=== PATIENT | female | born 1965 | race Caucasian/White ===

== ENCOUNTER 2017-04-24 09:39 | Emergency (ER) | payer BC ==
[~2017-04-24] VITALS: Ht 170.2 cm; Wt 70.2 kg
[2017-04-24 09:52] VITALS: TEMP 36.7; Ht 170.2 cm; Wt 70.2 kg
[2017-04-24] MEDS ORDERED: ONDANSETRON INJ 2 MG/ML 2 ML VIAL IV STA (09:59)
[2017-04-24] MEDS ORDERED: SODIUM CHLORIDE 0.9% 1000ML 1,000 ML IV STA (09:59)
[2017-04-24] MEDS ORDERED: KETOROLAC TROMETHAMINE 30 MG/ML VIAL IV STA (09:59)
[2017-04-24] MEDS ORDERED: SUMATRIPTAN SUCCINATE 6 MG/0.5 ML VIAL SQ STA (09:59)
[2017-04-24 10:08] LABS: BASO % 0.4 %; BASO ABS # 0.02 K/uL (0-0.2); COMPLETE YES; EOS % 1.1 %; HEMATOCRIT 42.6 % (37-47); LYMPH % 26.8 %; LYMPH ABS # 1.41 K/uL (1.2-3.4); MEAN CELL VOLUME 87.3 fL (80-100); MEAN CORPUSCULAR HEMOGLOBIN 30.1 pg (25-34); MEAN CORPUSCULAR HGB CONC 34.5 g/dl (32-36); MEAN PLATELET VOLUME 10.3 fL (7.4-10.4); MONO % 6.1 %; NEUT % 65.6 %; PLATELET COUNT 280 K/uL (130-400); RED BLOOD COUNT 4.88 M/uL (4.2-5.4); WHITE BLOOD COUNT 5.26 K/uL (4.8-10.8)
[2017-04-24 10:16] LABS: ALT/SGPT 20 U/L (12-78); BLOOD UREA NITROGEN 14 mg/dl (7-18); BUN/CREATININE RATIO 17.4 (10-20); CALCIUM 9.5 mg/dl (8.5-10.1); CARBON DIOXIDE 29 mmol/L (21-32); CHLORIDE 102 mmol/L (98-107); CREATININE 0.78 mg/dl (0.60-1.20); GLUCOSE 97 mg/dl (70-99); MAGNESIUM 2.3 mg/dl (1.8-2.4); POTASSIUM 4.2 mmol/L (3.5-5.1); SODIUM 136 mmol/L (136-145)
[2017-04-24 10:19] LABS: INR 0.9 (0.9-1.1); PARTIAL THROMBOPLASTIN RATIO 0.9; PROTHROMBIN TIME (PATIENT) 10.1 SECONDS (9.0-12.0)
[2017-04-24 10:24] LABS: ALKALINE PHOSPHATASE 63 U/L (45-117); AST/SGOT 12 U/L (15-37)
[2017-04-24] MEDS ORDERED: IBUP-103 PO (10:46)
[2017-04-24] MEDS ORDERED: MULT-897 PO (10:46)
[2017-04-24] MEDS ORDERED: NITR1CAP33 PO (10:46)
--- NOTE | 2017-04-24 10:54 | DIAGNOSTIC IMAGING REPORT ---
HEAD CT NONCONTRAST CT DOSE: 638.56 mGycm HISTORY: Headache GRIFFIN TECHNIQUE: Multiaxial CT images of the head were performed without the use of intravenous contrast. Comparison: None. Findings: The paranasal sinuses and mastoid air cells are clear. The calvarium and skull base are intact. The ventricles and sulci are within normal limits. There is no mass, hematoma, midline shift, or acute infarct. Impression: No acute intracranial abnormality. Electronically signed by: Greg Kenney M.D. 04/24/2017 10:52 AM Dictated Date/Time: 04/24/2017 10:51 AM
--- NOTE | 2017-04-24 11:29 | DIAGNOSTIC IMAGING REPORT ---
SINGLE VIEW CHEST CLINICAL HISTORY: Generalized abdominal pain. FINDINGS: An AP, portable, upright chest radiograph is obtained. No prior studies are available for comparison at the time of dictation. The examination is degraded by portable technique and patient rotation. The cardiomediastinal silhouette is unremarkable. The lungs and pleural spaces are clear. No pneumothorax is seen. The bony thorax is grossly intact. IMPRESSION: No active disease in the chest. Electronically signed by: Harjeet Cueto M.D. 04/24/2017 11:28 AM Dictated Date/Time: 04/24/2017 11:27 AM
[2017-04-24 12:42] VITALS: BP 107/73; PULSE 73; O2SAT 99
--- NOTE | 2017-04-24 14:12 | EMERGENCY ROOM VISIT NOTE ---
History Report prepared by Ashish: Tawanna Madrid Under the Supervision of: Dr. Mio Gann D.O. First contact with patient: 09:53 Chief Complaint: OTHER COMPLAINT Stated Complaint: SYNCOPE History of Present Illness The patient is a 51 year old female who presents to the Emergency Room with complaints of an episode of near syncope occurring prior to arrival. The patient reports that she was driving home to [place] when she became extremely nauseous. She reports that she proceeded to vomit twice. The patient notes that she became pale, diaphoretic, and got a "gurgle" feeling in her chest/ throat. She reports that she felt like her heart rate was racing. The patient notes that she is currently starting one of her migraines. She notes that the pain starts in her neck and radiates down her jaw line. The patient denies chest pain , shortness of breath, swelling in legs, and pain in legs. She notes that she just had a visit with her PCP three days ago and was fine. The patient reports that it seems that the feeling of nausea is intermittent. Source of History: patient Onset: prior to arrival Position: other (global) Quality: other (global) Timing: other (episode) Associated Symptoms: + headache, + diaphoresis, + neck pain, + nausea, + vomiting, No chest pain, No SOB Note: The patient complains of being pale, a fast heart beat, and having a "gurgle" in her chest/throat. The patient denies swelling or pain in her legs. Review of Systems See HPI for pertinent positives & negatives. A total of 10 systems reviewed and were otherwise negative. Past Medical & Surgical Surgical Problems: (1) History of hysterectomy Family History No pertinent family history Social History Smoking Status: Never Smoker Smokeless Tobacco Use: No Alcohol Use: none Drug Use: none Marital Status: single Housing Status: lives alone Occupation Status: employed Current/Historical Medications Scheduled Ibuprofen Tab (Advil), 400-600 MG PO Q6H Multiple Vitamin (One Daily), 1 TAB PO DAILY Nitrofurantoin Macrocrystals (Macrodantin), 50 MG PO 3XWK Allergies Coded Allergies: Cephalexin (Unverified Allergy, Unknown, hives, 04/24/17) Physical Exam Vital Signs Date Time Temp Pulse Resp B/P (MAP) Pulse Ox O2 Delivery O2 Flow Rate FiO2 6/29/17 12:42 73 18 105/73 99 04/24/17 12:42 73 18 107/73 99 Room Air 04/24/17 11:38 79 16 98/79 99 Room Air 04/24/17 10:45 76 16 122/76 99 Room Air 04/24/17 09:52 36.7 65 18 112/71 99 Room Air 04/24/17 09:51 72 Physical Exam GENERAL: Patient is awake, alert, and in no acute distress. Patient is resting comfortably and showing no signs of anxiety EYES: The conjunctivae are clear. The pupils are round and reactive. EARS, NOSE, MOUTH AND THROAT: The nose is without any evidence of any deformity. Mucous membranes are moist tongue is midline NECK: The neck is nontender and supple. RESPIRATORY: Normal respiratory effort is noted there is no evidence of wheezing rhonchi or rales CARDIOVASCULAR: Regular rate and rhythm noted there no murmurs rubs or gallops normal S1 normal S2 GASTROINTESTINAL: The abdomen is soft. Bowel sounds are present in all quadrants. Abdomen is nontender MUSCULOSKELETAL/EXTREMITIES: There is no evidence of gross deformity full range of motion is noted in the hips and shoulders SKIN: There is no obvious evidence of any rash. There are no petechiae, pallor or cyanosis noted. NEUROLOGIC: Patient is awake alert and oriented x3 strength is symmetric patellar reflexes are 2+ bilaterally Medical Decision & Procedures ER Provider Diagnostic Interpretation: Radiology results as stated below per my review and radiologist interpretation: HEAD CT NONCONTRAST CT DOSE: 638.56 mGycm HISTORY: Headache GRIFFIN TECHNIQUE: Multiaxial CT images of the head were performed without the use of intravenous contrast. Comparison: None. Findings: The paranasal sinuses and mastoid air cells are clear. The calvarium and skull base are intact. The ventricles and sulci are within normal limits. There is no mass, hematoma, midline shift, or acute infarct. Impression: No acute intracranial abnormality. Electronically signed by: Greg Kenney M.D. 04/24/2017 10:52 AM Dictated Date/Time: 04/24/2017 10:51 AM SINGLE VIEW CHEST CLINICAL HISTORY: Generalized abdominal pain. FINDINGS: An AP, portable, upright chest radiograph is obtained. No prior studies are available for comparison at the time of dictation. The examination is degraded by portable technique and patient rotation. The cardiomediastinal silhouette is unremarkable. The lungs and pleural spaces are clear. No pneumothorax is seen. The bony thorax is grossly intact. IMPRESSION: No active disease in the chest. Electronically signed by: Harjeet Cueto M.D. 04/24/2017 11:28 AM Dictated Date/Time: 04/24/2017 11:27 AM Laboratory Results 04/24/17 09:22 Red Blood Count 4.88, Mean Corpuscular Volume 87.3, Mean Corpuscular Hemoglobin 30.1, Mean Corpuscular Hemoglobin Concent 34.5, Mean Platelet Volume 10.3, Neutrophils (%) (Auto) 65.6, Lymphocytes (%) (Auto) 26.8, Monocytes (%) (Auto) 6.1, Eosinophils (%) (Auto) 1.1, Basophils (%) (Auto) 0.4, Neutrophils # (Auto) 3.45, Lymphocytes # (Auto) 1.41, Monocytes # (Auto) 0.32, Eosinophils # (Auto) 0.06, Basophils # (Auto) 0.02 04/24/17 09:22 Test 04/24/17 09:22 White Blood Count 5.26 K/uL (4.8-10.8) Red Blood Count 4.88 M/uL (4.2-5.4) Hemoglobin 14.7 g/dL (12.0-16.0) Hematocrit 42.6 % (37-47) Mean Corpuscular Volume 87.3 fL (80-100) Mean Corpuscular Hemoglobin 30.1 pg (25-34) Mean Corpuscular Hemoglobin Concent 34.5 g/dl (32-36) Platelet Count 280 K/uL (130-400) Mean Platelet Volume 10.3 fL (7.4-10.4) Neutrophils (%) (Auto) 65.6 % Lymphocytes (%) (Auto) 26.8 % Monocytes (%) (Auto) 6.1 % Eosinophils (%) (Auto) 1.1 % Basophils (%) (Auto) 0.4 % Neutrophils # (Auto) 3.45 K/uL (1.4-6.5) Lymphocytes # (Auto) 1.41 K/uL (1.2-3.4) Monocytes # (Auto) 0.32 K/uL (0.11-0.59) Eosinophils # (Auto) 0.06 K/uL (0-0.5) Basophils # (Auto) 0.02 K/uL (0-0.2) RDW Standard Deviation 42.7 fL (36.4-46.3) RDW Coefficient of Variation 13.3 % (11.5-14.5) Immature Granulocyte % (Auto) 0.0 % Immature Granulocyte # (Auto) 0.00 K/uL (0.00-0.02) Prothrombin Time 10.1 SECONDS (9.0-12.0) Prothromb Time International Ratio 0.9 (0.9-1.1) Activated Partial Thromboplast Time 23.7 SECONDS (21.0-31.0) Partial Thromboplastin Ratio 0.9 Anion Gap 5.0 mmol/L (3-11) Est Creatinine Clear Calc Drug Dose 84.9 ml/min Estimated GFR () 103.5 Estimated GFR (Non- 89.3 BUN/Creatinine Ratio 17.4 (10-20) Calcium Level 9.5 mg/dl (8.5-10.1) Magnesium Level 2.3 mg/dl (1.8-2.4) Total Bilirubin 0.4 mg/dl (0.2-1) Direct Bilirubin < 0.1 mg/dl (0-0.2) Aspartate Amino Transf (AST/SGOT) 12 U/L (15-37) Alanine Aminotransferase (ALT/SGPT) 20 U/L (12-78) Alkaline Phosphatase 63 U/L (45-117) Troponin I < 0.015 ng/ml (0-0.045) Total Protein 7.7 gm/dl (6.4-8.2) Albumin 4.3 gm/dl (3.4-5.0) Lipase 190 U/L (73-393) Thyroid Stimulating Hormone (TSH) 2.160 uIu/ml (0.300-4.500) Free Thyroxine 1.04 ng/dl (0.80-1.60) Laboratory results per my review. Medications Administered Medications (Trade) Dose Ordered Sig/Pollo Route Start Time Stop Time Status Last Admin Dose Admin Ketorolac Tromethamine (Toradol Inj) 30 mg NOW STAT IV 04/24/17 09:59 04/24/17 10:01 DC 04/24/17 10:23 30 MG Sodium Chloride 1,000 ml @ 999 mls/hr Q1H1M STAT IV 04/24/17 09:59 04/24/17 10:59 DC 04/24/17 10:22 999 MLS/HR Ondansetron HCl (Zofran Inj) 4 mg NOW STAT IV 04/24/17 09:59 04/24/17 10:01 DC 04/24/17 10:23 4 MG Sumatriptan Succinate (Imitrex Sq Inj) 6 mg NOW STAT SQ 04/24/17 09:59 04/24/17 10:01 DC 04/24/17 10:24 6 MG ECG Indication: vomiting Rate (beats per minute): 70 Rhythm: normal sinus Findings: no ectopy, other (no acute ST abnormalities) Comparison ECG Date: no prior available ED Course 0953: The patient was evaluated in room C9. A complete history and physical examination were performed. 0959: Ordered Imitrex Sq Inj 6 mg SQ, Zofran Inj 4 mg IV, NSS 1000 ml @ 999 mls/ hr IV, Toradol Inj 30 mg IV. 1224: Upon reevaluation, the patient is resting comfortably. I discussed the results and treatment plan with her. The patient verbalized agreement of the treatment plan. The patient was discharged home. Medical Decision Medication Reconciliation: I attest that I have personally reviewed the patient' s current medications list. Blood pressure screening: Patient was found to have normal blood pressure on screening and does not require follow-up. Differential diagnosis: Etiologies such as premature contractions, electrolyte abnormality, cardiac dysrhythmia, thyroid dysfunction, pulmonary embolism, infection, gastrointestinal, as well as others were entertained. The patient is a 51-year-old female who presented to the emergency department for evaluation of palpitations. The patient was driving when she had an acute onset of palpitations associated with diaphoresis. The patient felt that her heart was racing. She presented to the emergency department with normal sinus rhythm but states that those symptoms have significantly improved and was now starting to have a migraine headache. She states that she doesn't a history of migraine headaches but has not had a formal workup at this time. She had no focal neurologic deficits or meningismus. The patient was treated with IV pain medicine as well as IV fluids in the emergency department. She was reevaluated multiple times. I discussed patient's laboratory radiographic studies with her. I also discussed her case with the emergency Department piano case maker. They were able to get the patient scheduled for an echocardiogram and a Holter monitor. She was encouraged to rest and avoid any strenuous activity. She was also encouraged to continue all medications as prescribed. She was also encouraged return to emergency department immediately if symptoms change worsen or the need arises. Impression Primary Impression: Palpitations Additional Impression: Migraine headache Scribe Attestation The scribe's documentation has been prepared under my direction and personally reviewed by me in its entirety. I confirm that the note above accurately reflects all work, treatment, procedures, and medical decision making performed by me. Departure Information Dispostion Home / Self-Care Referrals No Doctor, Assigned (PCP) Forms HOME CARE DOCUMENTATION FORM, IMPORTANT VISIT INFORMATION, WORK / SCHOOL INSTRUCTIONS Patient Instructions My [facility] Additional Instructions Continue all medications as prescribed. Call your family to schedule follow- up appointment. Schedule the echocardiogram and a Holter monitor today. Return to the emergency apartment immediately if symptoms change worsen or the need arises. Problem Qualifiers Additional Impression: Migraine headache Migraine type: unspecified Status migrainosus presence: without status migrainosus Intractability: not intractable Qualified Codes: G43.909 - Migraine, unspecified, not intractable, without status migrainosus
== END 2017-04-24 12:43 | disposition home or self-care (01) ==
LOC: EDBD 09:39 → C.EDC 09:40
DX: R00.2 Palpitations (principal); G43.909 Migraine, unspecified, not intractable, without status migrainosus; Z90.710 Acquired absence of both cervix and uterus